=== PATIENT | female | born 1955 | race Caucasian/White ===

== ENCOUNTER 2022-01-09 08:32 | Emergency (ER) | payer OTHER, SELFPAY ==
[2022-01-09 08:44] VITALS: BP 128/71; PULSE 98; RESP 18; TEMP 36.6; O2SAT 98; BMI 22.5
--- NOTE | 2022-01-09 08:53 | DI.US.S_ITS ---
PROCEDURE: US PERIPH VENOUS LOW EXTREM LT INDICATIONS: CALF PAIN/NUMBNESS/TINGLING. RECENT TRAVEL TECHNIQUE: Real-time imaging, as well as color and pulse Doppler interrogation, were performed of the lower extremity deep veins from the inguinal ligament to the popliteal fossa. COMPARISON: None. FINDINGS: The common femoral, femoral and popliteal veins are normally compressible, and free of intraluminal thrombus. Color and pulse Doppler demonstrate normal phasic intraluminal flow. There is normal augmentation response to distal compression maneuver. Additional, dedicated ultrasound scanning is performed at the area of calf pain. No focal ultrasound abnormalities are seen within this region. IMPRESSION: Negative for deep venous thrombosis. Dictated by: Neel Lazo M.D. on 01/09/2022 at 9:07 Approved by: Neel Lazo M.D. on 01/09/2022 at 9:07
--- NOTE | 2022-01-09 09:13 | ED_ITS ---
HPI - Extremity Problem General Chief complaint: Extremity Problem,Nontraumatic Stated complaint: Pain and numbness in left leg Time Seen by Provider: 01/09/22 08:52 Source: patient Mode of arrival: Ambulatory History of Present Illness HPI Narrative: Patient is a 66-year-old female history of hypothyroidism presenting today with left calf pain. She says this been ongoing for the last 4 days. 5 days ago she was playing [employer]. The following day [place] she noticed a little twinge. This progressively gotten worse. Lying down with pressure on the back of her calf hurts. She actually is able to walk. She has no swelling no redness no fever. No prior history of DVT. She has no chest pain or shortness of breath. She has got a little bit of pins and needles as well Related Data Allergies Allergy/AdvReac Type Severity Reaction Status Date / Time ciprofloxacin [From Cipro] Allergy Verified 01/09/22 08:48 nitrofurantoin Allergy Verified 01/09/22 08:48 [From Macrobid] peanut Allergy Verified 01/09/22 08:48 Penicillins Allergy Verified 01/09/22 08:48 Review of Systems Review of Systems Narrative: GENERAL: Denies chills, fatigue, malaise, fever, sweats, travel HEENT: Denies sinus pain, ear pain, sore throat, difficulty swallowing, neck pain RESPIRATORY: Denies dyspnea, cough, wheezing, hemoptysis, sputum. CARDIOVASCULAR: Denies chest pain, palpitations, orthopnea, edema GASTROINTESTINAL: Denies nausea, vomiting, abdominal pain, diarrhea, constipation, melena. : Denies dysuria, frequency, incontinence, hematuria, urinary retention, flank pain. MUSCULOSKELETAL: See HPI SKIN: No rash, no erythema, no pruritus NEUROLOGIC: Denies weakness, dizziness, headache, numbness, change in speech, confusion PSYCHIATRIC: No concerning psychosocial issues. 12 point review of systems is negative except for those stated above and HPI Patient History Social History Smoking Status: Never smoker Smoking Status: Never smoker Substance Use Type: does not use Exam Initial Vital Signs Initial Vital Signs: Vital Signs Temperature 97.8 F 01/09/22 08:44 Pulse Rate 98 H 01/09/22 08:44 Respiratory Rate 18 01/09/22 08:44 Blood Pressure 128/71 01/09/22 08:44 Pulse Oximetry 98 01/09/22 08:44 Oxygen Delivery Method 01/09/22 08:44 GENERAL: Well-appearing, well-nourished and in no acute distress. CARDIOVASCULAR: peripheral pulses in tact, cap refill <2 sec RESPIRATORY: No respiratory distress, speaks in full sentences without difficulty EXTREMITIES: Normal range of motion, no clubbing or edema. Neurovascularly intact left leg no swelling, no erythema slightly tender calf distal pedal pulse present NEUROLOGICAL: Cranial nerves II through XII grossly intact. Normal gait and speech. SKIN: Warm, dry, no petechiae, no rashes or lesions. Course Orders Ordered: ED Orders 01/09/22 08:53 US periph venous low extrem lt Stat 01/09/22 09:35 D Dimer Stat Vital Signs Vital signs: Vital Signs - 8 hr 01/09/22 08:44 Temperature 97.8 F Pulse Rate 98 H Respiratory Rate 18 Blood Pressure 128/71 Pulse Oximetry 98 Oxygen Delivery Method Room Air MDM - Extremity (Nontraumatic) Lab Data Labs: Lab Results 01/09/22 Range/Units 09:35 D-Dimer < 500 (<500) ng/ml Imaging Data US - DVT: Radiologist's Impression: Signed Patient: Jaky Celis MR#: [id number] : 1955 Acct:[id number] Age/Sex: 66 / F Date of Service: 01/09/22 Loc: ED Accession Number: [id number] ?? Procedure: periph venous low extrem lt Ordering Provider: Racquel Bull D.O. PROCEDURE:? US PERIPH VENOUS LOW EXTREM LT ? INDICATIONS:? CALF PAIN/NUMBNESS/TINGLING. RECENT TRAVEL ? TECHNIQUE:? Real-time imaging, as well as color and pulse Doppler interrogation, were performed of the lower extremity deep veins from the inguinal ligament to the popliteal fossa.? ? COMPARISON:? None. ? FINDINGS:? The common femoral, femoral and popliteal veins are normally compressible, and free of intraluminal thrombus.? Color and pulse Doppler demonstrate normal phasic intraluminal flow.? There is normal augmentation response to distal compression maneuver. ? ? Additional, dedicated ultrasound scanning is performed at the area of calf pain.? No focal ultrasound abnormalities are seen within this region.? ? ? IMPRESSION:? ? Negative for deep venous thrombosis. ? ? Dictated by: Neel Lazo M.D. on 01/09/2022 at 9:07 ? ? Approved by: Neel Lazo M.D. on 01/09/2022 at 9:07 ? MDM Narrative Medical decision making narrative: Patient had mild left calf pain. No obvious swelling. Ultrasound is negative along with D-dimer this is highly unlikely to be a DVT. More likely a muscle strain. Supportive care only. She is complaining of some foot numbness. This is highly unlikely to be any kind of stroke. It has been going on for the last 3 days it is from her knee down more like peripheral neuropathy of anything. Discharge Plan Departure Patient Disposition: Home Clinical Impression: Calf pain Instructions: DI for Muscle Spasm Activity Restrictions/Additional Instructions: *You have been diagnosed with calf pain *What to do: At this time you do not have a blood clot. I do recommend stretching heating pad *Continue to take medications as directed Ibuprofen 600 mg every 6 hours if needed for [id number] pain Tylenol 650 mg every 4-6 hours if needed for [id number] pain *Follow up with your primary care provider in 2-3 days or call [phone] *Return to ER if you should have increasing pain swelling redness fever or any new, worsening or concerning symptoms
[2022-01-09 09:54] LABS: D Dimer < 500 ng/ml (<500)
[2022-01-09 10:37] VITALS: BP 125/58; PULSE 67; RESP 15; O2SAT 97
== END 2022-01-09 10:38 | disposition home or self-care (01) ==
PROVIDERS: Emergency Provider Emergency Medicine
DX: M79.605 Pain in left leg (principal)
CPT/HCPCS: 36415; 85379; 93971; 99283; 99284